=== PATIENT | female | born 1970 | race Caucasian/White ===

== ENCOUNTER 2021-04-24 09:53 | Emergency (ER) | payer OTHER ==
[~2021-04-24] VITALS: Ht 165.1 cm; Wt 99.8 kg
--- NOTE | 2021-04-24 10:00 | NUR ---
Placed in room 6 . Placed on threat monitoring analyst, blood pressure machine and pulse oximeter. To gown for exam. Side rails up.
[2021-04-24 10:01] VITALS: BP_SYST 163
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
--- NOTE | 2021-04-24 10:13 | NUR ---
ER at bedside examining patient.
[2021-04-24] MEDS ORDERED: NAPR-688 PO (10:19)
[2021-04-24] MEDS ORDERED: BACITRACIN 1 GM OINT TP ONE (10:21)
[2021-04-24 10:36] VITALS: BP_SYST 163
--- NOTE | 2021-04-24 10:37 | NUR ---
Patient given written and verbal discharge instructions and verbalizes understanding. ER MD discussed with patient the results and treatment provided. Patient in stable condition. ID arm band removed. Rx of NAPROXEN given. Patient educated on pain management and to follow up with PMD. Pain Scale 3/10. Opportunity for questions provided and answered. Medication side effect fact sheet provided.
== END 2021-04-24 10:36 | disposition home or self-care (01) ==
LOC: SED 09:53
DX: S50.311A Abrasion of right elbow, initial encounter (principal); S09.90XA Unspecified injury of head, initial encounter; I10 Essential (primary) hypertension; Z79.899 Other long term (current) drug therapy; V18.4XXA Pedal cycle driver injured in noncollision transport accident in traffic accident, initial encounter; Y93.89 Activity, other specified; Y92.89 Other specified places as the place of occurrence of the external cause; Y99.8 Other external cause status
CPT/HCPCS: 99283